=== PATIENT | female | born 1965 | race Two or more races ===

== ENCOUNTER → 2020-12-17 | Emergency (ER) | payer OTHER ==
[~2020-12-17] VITALS: Ht 157.5 cm; Wt 84.4 kg
[~2020-12-17] MED LIST: ARIPIPRAZOLE5 MG PO; CIPROFLOXACIN500 MG PO; ESTAZOLAM2 MG PO; HUMALOG100 UNIT/2 SQ; LANTUS SOL100 UNIT/1 SQ; MIRTAZAPINE15 MG PO; NABUMETONE750 MG PO; SERTRALINE HCL100 MG PO; TRULICITY0.75 MG/0. SQ
== END | disposition left against medical advice (07) ==
LOC: ER 15:54
DX: L03.011 Cellulitis of right finger (principal)

== ENCOUNTER → 2022-08-30 | Day surgery (SDC) | payer OTHER ==
[~2022-08-30] VITALS: Ht 157.5 cm; Wt 76.2 kg
[~2022-08-30] MED LIST changes: +ATIVAN0.5 M1 PO; +ATORVASTATIN CA10 MG PO; +RESTORIL7.5 MG PO
== END | disposition home or self-care (01) ==
LOC: ADM 08-26 07:15 → CIR.AMB 06:46
PROVIDERS: ATTEND Orthopaedic Surgery Hand Surgery
DX: L03.011 Cellulitis of right finger (principal); B95.2 Enterococcus as the cause of diseases classified elsewhere; E11.9 Type 2 diabetes mellitus without complications; E78.5 Hyperlipidemia, unspecified; Z71.6 Tobacco abuse counseling; F17.210 Nicotine dependence, cigarettes, uncomplicated; Z79.4 Long term (current) use of insulin